=== PATIENT | male | born 1985 | race Caucasian/White ===

== ENCOUNTER 2016-12-15 11:42 | Inpatient (IN) | payer SELFPAY ==
[~2016-12-15] VITALS: Ht 167.6 cm; Wt 93.9 kg
[2016-12-15] MEDS ORDERED: PALI1.5T PO (11:50)
[2016-12-15] MEDS ORDERED: BENZ0.5T6 PO (11:50)
[2016-12-15 13:24] LABS: BASOPHILS # (AUTO) 0.08 K/uL (0.00-0.20); BASOPHILS % (AUTO) 0.9 % (0.0-2.0); HEMATOCRIT 44.2 % (41-53); HEMOGLOBIN 14.7 g/dL (13.5-17.5); LYMPHOCYTES # (AUTO) 1.8 K/uL (1.0-4.8); LYMPHOCYTES % (AUTO) 20.2 % (22.0-44.0); MEAN CORPUSCULAR HEMOGLOBIN 29.7 pg (26.0-34.0); MEAN CORPUSCULAR HGB CONC 33.3 G/dL (31.0-37.0); MEAN CORPUSCULAR VOLUME 89 fL (80-100); MONOCYTES # (AUTO) 0.8 K/uL (0.1-1.0); MONOCYTES % (AUTO) 8.5 % (2.0-9.0); NEUTROPHILS # (AUTO) 6.2 K/uL (1.8-7.7); NEUTROPHILS % (AUTO) 68.2 % (40.0-70.0); PLATELET COUNT (AUTO) 237 K/uL (150-450); RED BLOOD CELL COUNT(AUTO) 4.96 MIL/uL (4.50-5.90); RED CELL DISTRIBUTION WIDTH 14.3 % (11.5-14.5); WHITE BLOOD COUNT (AUTO) 9.1 K/uL (4.5-11.0)
[2016-12-15 13:36] LABS: ANION GAP 10 mmol/L (8-16); CALCIUM, TOTAL 8.8 mg/dL (8.8-10.5); CARBON DIOXIDE 26 mmol/L (22-29); CHLORIDE 101 mmol/L (98-107); CREATININE 1.22 mg/dL (0.60-1.30); GLOMERULAR FILTR. RATE CALC > 60 mL/min (>60); POTASSIUM 3.4 mmol/L (3.5-5.1); SODIUM SERUM 137 mmol/L (136-145); UREA NITROGEN, BLOOD 21 mg/dL (7-18)
[2016-12-15 13:40] LABS: ALANINE AMINOTRANSFERASE 44 U/L (12-78); ALBUMIN 3.5 g/dL (3.4-5.0); ASPARTATE AMINOTRANSFERASE 38 U/L (15-37); BILIRUBIN,TOTAL 0.4 mg/dL (0.1-1.0); TOTAL PROTEIN, SERUM 7.1 g/dL (6.4-8.2)
[2016-12-15] MEDS ORDERED: PALIPERIDONE 3 MG ER TABLET PO ONE (15:15)
[2016-12-15] MEDS ORDERED: LORazepam 2 MG TABLET PO PRN (16:00)
[2016-12-15] MEDS ORDERED: HALOPERIDOL 5 MG TABLET PO PRN (16:00)
[2016-12-15] MEDS ORDERED: ZOLPIDEM TARTRATE 10 MG TABLET PO PRN (16:00)
[2016-12-15 17:13] LABS: CHOL/HDL RATIO 3.4 (4.2-7.3)
[2016-12-15 17:28] VITALS: BP 132/70
[2016-12-15] MEDS ORDERED: POTASSIUM CHLORIDE 20 MEQ ER TABLET PO ONE (17:45)
[2016-12-15 18:26] LABS: APPEARANCE,URINE TURBID (CLEAR); GLUCOSE, URINE (UA) NEGATIVE (NEGATIVE); KETONES,URINE TRACE mg/dL (NEGATIVE); LEUKOCYTE ESTERASE ,URINE NEGATIVE (NEGATIVE); OCCULT BLOOD,URINE NEGATIVE (NEGATIVE); PH,URINE 5.5 (5.0-8.0); PROTEIN,URINE NEGATIVE (NEGATIVE)
[2016-12-15 18:36] LABS: ADD UA MICROSCOPIC YES
[2016-12-15 18:41] LABS: RBC,URINE 0-2 /HPF (0-2); WBC,URINE 0-2 /HPF (0-5)
[2016-12-15 18:42] LABS: AMORPHOUS SEDIMENT,UR Many /LPF (None Seen); SQUAMOUS EPITHELIAL CELL,UR Rare /LPF (None Seen)
[2016-12-15] MEDS: PALIPERIDONE 6 MG ER TABLET PO SCH (20:10)
[2016-12-16 08:05] VITALS: BP 125/70
[2016-12-16] MEDS: PALIPERIDONE 6 MG ER TABLET PO SCH ×2 (09:36→20:58)
[2016-12-16 18:17] VITALS: BP 111/60
[2016-12-17 08:34] VITALS: BP 154/91
[2016-12-17] MEDS: PALIPERIDONE 6 MG ER TABLET PO SCH ×2 (09:13→20:37)
[2016-12-17 18:13] VITALS: BP 145/86
[2016-12-18] MEDS: PALIPERIDONE 6 MG ER TABLET PO SCH (08:12)
[2016-12-18 09:17] VITALS: BP 137/90
[2016-12-18] MEDS ORDERED: PALI6 PO (09:50)
== END 2016-12-18 10:45 | disposition home or self-care (01) | DRG 885 ==
LOC: EMS 11:44 → 3EI 16:37
PROVIDERS: ADMIT Psychiatry & Neurology Child & Adolescent Psychiatry; ATTEND Psychiatry & Neurology Child & Adolescent Psychiatry
DX: F25.1 Schizoaffective disorder, depressive type (principal); R45.851 Suicidal ideations; F31.9 Bipolar disorder, unspecified; F29 Unspecified psychosis not due to a substance or known physiological condition; F12.90 Cannabis use, unspecified, uncomplicated; F15.90 Other stimulant use, unspecified, uncomplicated; E87.6 Hypokalemia; Z79.899 Other long term (current) drug therapy; Z59.0 Homelessness; Z71.51 Drug abuse counseling and surveillance of drug abuser
CPT/HCPCS: 99285; G0480